=== PATIENT | female | born 1985 | race African-American/Black ===

== ENCOUNTER 2019-07-24 18:27 | Emergency (ER) | payer OTHER ==
[~2019-07-24] VITALS: Ht 175.3 cm; Wt 115.2 kg
[2019-07-24 18:39] VITALS: Ht 175.3 cm; Wt 115.2 kg
[2019-07-24 19:45] VITALS: BP 134/78
== END 2019-07-24 19:45 | disposition home or self-care (01) ==
LOC: ED 18:27
DX: S13.9XXA Sprain of joints and ligaments of unspecified parts of neck, initial encounter (principal); V49.9XXA Car occupant (driver) (passenger) injured in unspecified traffic accident, initial encounter; Y93.89 Activity, other specified; Y92.89 Other specified places as the place of occurrence of the external cause; Y99.8 Other external cause status
CPT/HCPCS: J1885